=== PATIENT | female | born 1990 | race Caucasian/White ===

== ENCOUNTER 2017-12-29 17:20 | Emergency (ER) | payer OTHER ==
[~2017-12-29] VITALS: Ht 160 cm; Wt 63.2 kg
[~2017-12-29 17:20] MED LIST: CEPHALEXIN500 M1 PO; OMEGA 31000 MG PO; PHENERGAN 25 TA25 MG PO; PHENERGAN25 MG RC; PRENATAL1 TA1 PO; ZOFRAN4 M1 PO
[2017-12-29 17:31] VITALS: BP 142/63; PULSE 83; TEMP 97.7
== END 2017-12-29 18:13 | disposition home or self-care (01) ==
LOC: COL.ER 17:20
DX: S83.92XA Sprain of unspecified site of left knee, initial encounter (principal); X50.1XXA Overexertion from prolonged static or awkward postures, initial encounter